=== PATIENT | male | born 1965 | race Caucasian/White ===

== ENCOUNTER 2024-11-13 00:53 | Emergency (ER) | payer SELFPAY ==
[2024-11-13 01:03] VITALS: BP 194/142; PULSE 94; RESP 16; TEMP 36.4; O2SAT 96
--- NOTE | 2024-11-13 01:39 | XRR_ITS ---
PROCEDURE INFORMATION: Exam: XR Abdomen Exam date and time: 11/13/2024 2:31 AM Age: 59 years old Clinical indication: Abdominal pain; Generalized; Diffuse abd pain with constipation; Additional info: Abdominal pain constipation TECHNIQUE: Imaging protocol: Radiologic exam of the abdomen. Views: Frontal supine view of the abdomen. 1 View. COMPARISON: No relevant prior studies available. FINDINGS: Gastrointestinal tract: Nonspecific nonobstructive bowel gas pattern noted. There are a few mildly prominent air-filled loops of small bowel in the right lower quadrant. Intraperitoneal space: No free air. Bones/joints: Unremarkable. XR/XR abdomen 1V* [id number] IMPRESSION: Nonspecific nonobstructive bowel gas pattern noted. There are a few mildly prominent air-filled loops of small bowel in the right lower quadrant.
[2024-11-13 01:57] LABS: Basophils # 0.1 10^3/uL (0.0-0.1); Basophils % 0.4 %; Eosinophils # 0.2 10^3/uL (0.0-0.8); Eosinophils % 1.2 %; Hematocrit 51.3 % (37-53); Lymphocytes # 1.7 10^3/uL (0.8-4.8); Lymphocytes % 12.8 %; Mean Corpuscular HGB Conc 34.3 g/dL (30-55); Mean Corpuscular Hemoglobin 30.9 pg (27-33); Mean Corpuscular Volume 90.2 fl (82-101); Mean Platelet Volume 9.4 fL (7.4-10.4); Monocytes # 0.9 10^3/uL (0.2-0.9); Monocytes % 6.9 %; Neutrophils # 10.52 10^3/uL (1.8-7.7); Nucleated Red Blood Cells % 0 %; Platelet Count 223 10^3/cmm (157-399); Red Blood Count 5.69 10^6/uL (3.85-5.65); Red Cell Distribution Width 12.4 % (12.1-15.1); White Blood Count 13.49 10^3/uL (3.29-11.43)
[2024-11-13 02:19] LABS: Alanine Aminotransferase 12 U/L (0-41); Albumin Level 3.8 g/dL (3.5-5.2); Alkaline Phosphatase 101 U/L (40-130); Anion Gap 19.6 (5-19); Aspartate Amino Transferase 14 U/L (0-40); Blood Urea Nitrogen 11 mg/dL (6-20); Calcium 9.2 mg/dL (8.5-10.5); Carbon Dioxide 19 mmol/L (22-29); Chloride 96 mmol/L (98-107); Globulin 3.2 g/dL (1.3-4.6); Glomerular Filtration Rate 52.1 mL/min (90-130); Glucose 176 mg/dL (65-115); Osmolality Calculated 276 mOsm/kg (285-295); Potassium 3.6 mmol/L (3.5-5.1); Sodium 131 mmol/L (136-145); Total Bilirubin 0.7 mg/dL (0.15-1.2)
--- NOTE | 2024-11-13 02:38 | ED_ITS ---
HPI - Abdominal Pain 2 General: Chief Complaint: Abdominal Pain Stated Complaint: severe constipated not eating. very weak Time Seen by Provider: 11/13/24 02:14 History of Present Illness: Patient presents to the ER with complaints of lower abdominal pain and pressure along with constipation for the last week. Patient said he normally uses the bathroom once a day but he has been having his teeth work on he is not been eating whole lot so in the last week he is only use the bathroom about 2 times. Patient says he took self off all his medicine. He has been taken some [id number] Colace intermittently and did use an enema today to have some results. Patient denies any pain medicine usage Related Data Allergies Allergy/AdvReac Type Severity Reaction Status Date / Time No Known Allergies Allergy Verified 11/13/24 01:10 Review of Systems 2 General: Reports: 10 or more systems reviewed and unremarkable except in HPI and below Physical Exam 2 Const: COMMON NORMALS: no acute distress, average body habitus, patient oriented x3, no limitations, healthy appearing, alert and well nourished HENMT: COMMON NORMALS: normocephalic, atraumatic, hearing grossly normal bilaterally, external ears normal and Normal external nose present HEAD & SCALP: normocephalic and atraumatic NOSE: Normal external nose present E XTERNAL EAR: Yes external ears normal Neck/C-Spine: COMMON NORMALS: full ROM, no lymphadenopathy, supple, no meningeal signs, no JVD and Thyroid normal THYROID: Thyroid normal Chest: COMMONS NORMALS: normal inspection of the chest and normal palpation of entire chest wall Resp: COMMON NORMALS: normal respiratory effort, No retractions, No use of accessory muscles and clear to auscultation bilaterally AUSCULTATION: clear to auscultation bilaterally Cardio: COMMON NORMALS: no JVD, regular rate, regular rhythm, S1 normal heart sound present, S2 normal heart sound present, No gallops present (Cardio), No clicks present (Cardio), No murmurs present (Cardio) and No rub (Cardio) R ATE: regular rate RHYTHM: regular rhythm HEART SOUNDS: S1 normal heart sound present and S2 normal heart sound present GI: COMMON NORMALS: Normal to inspection, nondistended, normoactive bowel sounds present, Soft to palpation, non-tender, No hepatosplenomegaly present and no masses PALPATION: Yes Soft to palpation and Yes No hepatosplenomegaly present Neuro: COMMON NORMALS: patient oriented x3 SENSORIUM/ORIENTATION: Yes alert MENINGEAL SIGNS: Yes no meningeal signs Course 2 Vital Signs: Vital signs: Vital Signs Temperature 97.5 F L 11/13/24 01:03 Pulse Rate 87 11/13/24 03:28 Respiratory Rate 16 11/13/24 01:03 Blood Pressure 165/116 11/13/24 03:28 Pulse Oximetry 97 11/13/24 03:28 MDM - Abdominal Pain Medical Decision Making Lab work was reviewed, white count mildly elevated 13.9, hemoglobin 17.6, abdominal x-ray reviewed by myself shows prominent stool no other significant abnormalities. Patient was instructed to increase his intake of fiber, water and stool softeners for the next several days till he has multiple good bowel movements. Medical Records I reviewed the patient's medical records. Lab Data I reviewed the patient's lab results. 11/13/24 01:39 11/13/24 01:39 Labs/Radiology: Laboratory Results WBC 13.49 10^3/uL (3.29-11.43) H 11/13/24 01:39 RBC 5.69 10^6/uL (3.85-5.65) H 11/13/24 01:39 Hgb 17.60 g/dL (11.27-16.99) H 11/13/24 01:39 Hct 51.3 % (37-53) 11/13/24 01:39 MCV 90.2 fl (82-101) 11/13/24 01:39 MCH 30.9 pg (27-33) 11/13/24 01:39 MCHC 34.3 g/dL (30-55) 11/13/24 01:39 RDW 12.4 % (12.1-15.1) 11/13/24 01:39 Plt Count 223 10^3/cmm (157-399) 11/13/24 01:39 MPV 9.4 fL (7.4-10.4) 11/13/24 01:39 Neut % (Auto) 78.0 % 11/13/24 01:39 Lymph % (Auto) 12.8 % 11/13/24 01:39 Nobles % (Auto) 6.9 % 11/13/24 01:39 Eos % (Auto) 1.2 % 11/13/24 01:39 Baso % (Auto) 0.4 % 11/13/24 01:39 Neut # (Auto) 10.52 10^3/uL (1.8-7.7) H 11/13/24 01:39 Lymph # (Auto) 1.7 10^3/uL (0.8-4.8) 11/13/24 01:39 Nobles # (Auto) 0.9 10^3/uL (0.2-0.9) 11/13/24 01:39 Eos # (Auto) 0.2 10^3/uL (0.0-0.8) 11/13/24 01:39 Baso # (Auto) 0.1 10^3/uL (0.0-0.1) 11/13/24 01:39 Nucleated RBC % (auto) 0 % 11/13/24 01:39 Nucleated RBCs # 0.0 /100WBC 11/13/24 01:39 Sodium 131 mmol/L (136-145) L 11/13/24 01:39 Potassium 3.6 mmol/L (3.5-5.1) 11/13/24 01:39 Chloride 96 mmol/L (98-107) L 11/13/24 01:39 Carbon Dioxide 19 mmol/L (22-29) L 11/13/24 01:39 Anion Gap 19.6 (5-19) H 11/13/24 01:39 BUN 11 mg/dL (6-20) 11/13/24 01:39 Creatinine 1.4 mg/dL (0.7-1.2) H 11/13/24 01:39 GFR Calculation 52.1 mL/min (90-130) L 11/13/24 01:39 Glucose 176 mg/dL (65-115) H 11/13/24 01:39 Calculated Osmolality 276 mOsm/kg (285-295) L 11/13/24 01:39 Calcium 9.2 mg/dL (8.5-10.5) 11/13/24 01:39 Total Bilirubin 0.7 mg/dL (0.15-1.2) 11/13/24 01:39 AST 14 U/L (0-40) 11/13/24 01:39 ALT 12 U/L (0-41) 11/13/24 01:39 Alkaline Phosphatase 101 U/L (40-130) 11/13/24 01:39 Total Protein 7.0 g/dL (6.6-8.7) 11/13/24 01:39 Albumin 3.8 g/dL (3.5-5.2) 11/13/24 01:39 Globulin 3.2 g/dL (1.3-4.6) 11/13/24 01:39 All radiology interpretation(s) finalized by discharge Discharge Plan Discharge Patient Disposition: Home Clinical Impression: Constipation Qualifiers: Constipation type: unspecified constipation type Qualified Code(s): K59.00 - Constipation, unspecified Condition: Stable Discharge Orders: Discharge ED (Routine); Ordered 11/13/24 Ordered By: Shalom Garcia Patient Instructions: Constipation - Adult, High Fiber Diet (ED), Polyethylene Glycol 3350 (By mouth) (Miralax, Healthylax... Activity Restrictions/Additional Instructions: Your evaluation in ER was unremarkable other than prominent stool in your abdomen. This means even though you been going to the bathroom you are still backed up. Please increase your fiber, water intake, and stool softeners for the next 2 to 3 days until you have multiple good bowel movements every day to help cleanse yourself out. Please follow-up with your family practice physician within the next 7 days for further evaluation and treatment. Print Language: Nepali Coding Level of Care Code ED Precipitate Washer for Mala Shah
[2024-11-13 03:28] VITALS: BP 165/116; PULSE 87; O2SAT 97
[2024-11-13 04:34] VITALS: BP 170/102; PULSE 86; O2SAT 96
== END 2024-11-13 04:36 | disposition home or self-care (01) ==
PROVIDERS: Emergency Provider Emergency Medicine
DX: K59.00 Constipation, unspecified (principal)
CPT/HCPCS: 74018; 80053; 85025; 99284